=== PATIENT | male | born 1950 | race Caucasian/White ===

== ENCOUNTER 2016-03-25 17:42 | Emergency (ER) | payer OTHER, MEDICAID ==
[2016-03-25 18:15] LABS: ABSOLUTE NEUTROPHIL COUNT 5.4 K/mm3 (1.8-7.7); BASO # 0.1 K/mm3 (0.0-0.2); BASO % 1.4 % (0.2-1.0); EOS # 0.4 (0.0-0.5); EOS % 4.2 % (0.9-2.9); HEMATOCRIT 43.5 % (32.0-52.0); HEMOGLOBIN 13.8 gm/l (14.0-18.0); IMM NEUT% 0.2 % (0-1); LYMPH # 2.5 (1.0-4.8); LYMPH % 27.1 % (15-45); MEAN CORPUSCULAR HEMOGLOBIN 29.8 pg (27.0-31.0); MEAN CORPUSCULAR HGB CONC 31.7 g/dl (33.0-37.0); MEAN PLATELET VOLUME 10.7 fl (7.4-10.4); MONO # 0.7 (0.0-0.8); MONO % 7.4 % (4-12); NEUT % 59.7 % (43-75); PLATELET COUNT 280 K/mm3 (130-400); RED CELL DISTRIBUTION WIDTH 13.5 % (11.5-14.5)
[2016-03-25] MEDS ORDERED: MAALOX/LIDO2%VISC/SIMETHICONE 40 ML BOT ONE (18:17)
[2016-03-25] MEDS ORDERED: FAMOTIDINE 10 MG/ML 2ML VIAL ONE (18:18)
[2016-03-25 18:36] LABS: ALB/GLOB RATIO 1.2 (>1.0); CALCIUM 9.7 mg/dL (8.6-10.3)
--- NOTE | 2016-03-25 19:01 | RAD ---
CHEST 2 VIEWS HISTORY: Shortness of breath and chest pressure. Frontal and lateral chest radiographs dated 03/25/2016. COMPARISON: None. FINDINGS: FOCAL AIRSPACE OPACITY: No gross airspace consolidation. Reticular opacities may reflect senescent/fibrotic changes of mild degree.. PLEURAL EFFUSION: None. CARDIOMEDIASTINAL SILHOUETTE: Nonenlarged. PNEUMOTHORAX: None identified. OSSEOUS STRUCTURES: Findings of minor thoracic disc degeneration. IMPRESSION: No acute cardiopulmonary process noted.
== END 2016-03-25 20:41 | disposition home or self-care (01) ==
LOC: ED 17:42
DX: K21.9 Gastro-esophageal reflux disease without esophagitis (principal); I25.2 Old myocardial infarction; E66.9 Obesity, unspecified; G89.29 Other chronic pain; M25.569 Pain in unspecified knee; F17.210 Nicotine dependence, cigarettes, uncomplicated; Z79.899 Other long term (current) drug therapy
CPT/HCPCS: 85379; 85025; 80053; 84484; 71020; 99284; 96374; 93005; 99283; A9270

== ENCOUNTER 2016-05-22 16:03 | Emergency (ER) | payer OTHER, MEDICAID ==
[2016-05-22 16:52] LABS: ABSOLUTE NEUTROPHIL COUNT 5.7 K/mm3 (1.8-7.7); BASO # 0.1 K/mm3 (0.0-0.2); BASO % 1.3 % (0.2-1.0); EOS # 0.4 (0.0-0.5); EOS % 3.7 % (0.9-2.9); HEMATOCRIT 42.5 % (32.0-52.0); HEMOGLOBIN 13.7 gm/l (14.0-18.0); IMM NEUT% 0.3 % (0-1); LYMPH # 2.5 (1.0-4.8); LYMPH % 26.5 % (15-45); MEAN CELL VOLUME 92.2 fl (80.0-94.0); MEAN CORPUSCULAR HEMOGLOBIN 29.7 pg (27.0-31.0); MEAN CORPUSCULAR HGB CONC 32.2 g/dl (33.0-37.0); MONO # 0.7 (0.0-0.8); MONO % 7.7 % (4-12); NEUT % 60.5 % (43-75); PLATELET COUNT 260 K/mm3 (130-400); RED CELL DISTRIBUTION WIDTH 13.2 % (11.5-14.5)
[2016-05-22 17:01] LABS: ALB/GLOB RATIO 1.1 (>1.0); ALBUMIN 3.8 gm/dL (3.5-5.7); CALCIUM 9.3 mg/dL (8.6-10.3)
[2016-05-22 17:08] LABS: TROPONIN I < 0.01 ng/ml (0.0-0.06)
[2016-05-22 17:12] LABS: CKMB ISOENZYME 2.5 ng/ml (0.6-6.3)
[2016-05-22] MEDS ORDERED: GABAPENTIN 300 MG CAPSULE ONE ×2 (17:43→17:48)
--- NOTE | 2016-05-22 18:33 | RAD ---
Name: DONALD ADHIKARI Exam: Two-view chest Comparison: 03/25/2016 Clinical history: Chest pain Findings: 2 views of the chest are submitted. The heart mediastinum and hilar structures are within normal limits. There is no failure, infiltrate, pleural effusion or pneumothorax. Regional skeleton is within normal limits. Aortic stent graft in the abdominal aorta is partially imaged. Impression: No acute cardiopulmonary process
[2016-05-22 19:46] LABS: TROPONIN I < 0.01 ng/ml (0.0-0.06)
[2016-05-22 19:49] LABS: CKMB ISOENZYME 2.4 ng/ml (0.6-6.3)
== END 2016-05-22 20:44 | disposition home or self-care (01) ==
LOC: ED 16:03
DX: I48.0 Paroxysmal atrial fibrillation (principal); R07.9 Chest pain, unspecified; F17.210 Nicotine dependence, cigarettes, uncomplicated; I25.2 Old myocardial infarction
CPT/HCPCS: 85379; 85025; 82550; 82553 ×2; 80053; 84443; 84484 ×2; 36415 ×2; 71020; 99284 ×2; 93226; 93225; A9270 ×2